=== PATIENT | female | born 1980 | race Caucasian/White ===

== ENCOUNTER → 2017-10-30 | Outpatient (CLI) | payer BC ==
--- NOTE | 2017-10-30 11:55 | MR ---
EXAMINATION TYPE: MR knee LT wo con DATE OF EXAM: 10/30/2017 COMPARISON: Plain film 10/15/2017 HISTORY: Left knee pain TECHNIQUE: Multiplanar, multisequence imaging of the left knee is performed without IV contrast. FINDINGS: MEDIAL MENISCUS: Anterior and posterior horns are intact without tear. LATERAL MENISCUS: Anterior and posterior horns are intact without tear. CRUCIATE LIGAMENTS: The anterior and posterior cruciate ligaments are intact and unremarkable. COLLATERAL LIGAMENTS: The medial collateral ligament and lateral collateral ligament complex are inta ct and unremarkable. EXTENSOR MECHANISM: Visualized quadriceps and patellar tendons are intact. At the insertion of the qu adriceps tendon there is a small amount of fluid signal present without lashawn tear. EFFUSION: No significant suprapatellar joint effusion. POPLITEAL CYST: No popliteal/velez cyst. TRICOMPARTMENT SPACES: Maintained CARTILAGE: No significant chondromalacia. BONE MARROW SIGNAL: No focal abnormal marrow signal is appreciated. OTHER: Small amount of fluid present at the origin of the gastrocnemius tendon could represent a sma ll ganglion IMPRESSION: There may be tendinosis at the insertion of the quadriceps tendon, correlate for tenderness. Addition al findings above.
== END | disposition home or self-care (01) ==
LOC: RADMRIMAIN 08:58
PROVIDERS: ATTEND Orthopaedic Surgery
DX: M25.562 Pain in left knee (principal)